=== PATIENT | female | born 1985 | race Caucasian/White ===

== ENCOUNTER 2016-12-10 10:06 | Inpatient (IN) ==
[2016-12-10 10:28] LABS: URINE MICRO REVIEW NEEDED? NO; URINE SOURCE CLEAN CATCH
[2016-12-10 10:35] LABS: BILIRUBIN URINE NEGATIVE (NEGATIVE); BLOOD URINE TRACE (NEGATIVE); COLOR YELLOW; GLUCOSE URINE NEGATIVE (NEGATIVE); LEUKOCYTES URINE LARGE (NEGATIVE); NITRITE URINE NEGATIVE (NEGATIVE); PROTEIN URINE 30 mg/dL (NEGATIVE); SP GRAVITY URINE 1.019; TURBIDITY URINE HAZY (CLEAR); UR EPITHELIAL CELLS >10 /HPF (<10); URINE BACTERIA 4+ /HPF; URINE CULTURE NEEDED? YES; URINE WBC TNTC /HPF (<10); UROBILINOGEN URINE 2 mg/dL (NORMAL)
[2016-12-10 10:53] LABS: MANUAL DIFF NEEDED? NO
[2016-12-10] MEDS ORDERED: NS 1,000 ML IV ONE (10:55)
[2016-12-10] MEDS ORDERED: ZOFRAN IV ONE (10:55)
[2016-12-10] MEDS ORDERED: ROCEPHIN 2 GM/NS 2 GM/50 ML IVPB IV ONE (10:55)
[2016-12-10] MEDS ORDERED: MORPHINE IV ONE ×2 (10:55→13:43)
[2016-12-10 11:01] LABS: BASO% 0.1 % (0.0-0.8); HEMATOCRIT 39.5 % (37.0-47.0); IMM GRAN# 0.03 X1000 (0.0-0.04); IMM GRAN% 0.2 % (0.0-0.5); LYMPH# 1.25 X1000 (1.2-3.4); LYMPH% 8.3 % (20.5-51.1); MCH 27.7 PG (27-31); MCHC 32.9 g/dL (33-37); MCV 84.2 FL (81-99); MONO# 1.56 X1000 (0.11-0.59); MONO% 10.3 % (1.7-9.3); MPV 9.5 FL (7.4-10.4); NEUT% 81.1 % (42.2-75.2); PLT 252 X1000 (130-400); RBC 4.69 XMIL (4.2-5.4)
[2016-12-10 11:11] LABS: INR 1.16; PROTIME 12.3 Seconds (9.2-11.7); PTT 33.3 Seconds (22.0-36.0)
[2016-12-10 11:30] LABS: AGAP 19; ALBUMIN 4.3 g/dL (3.5-5.0); ALKALINE PHOSPHATASE 170 U/L (32-104); BUN 9 mg/dL (8-22); CHLORIDE 98 mmol/L (98-107); CK PROFILE 47 U/L (24-173); COSMO 275; GOT 17 U/L (10-30); GPT 27 U/L (10-36); POTASSIUM 3.9 mmol/L (3.5-5.1); SODIUM 138 mmol/L (136-145); TCO2 21 mmol/L (25-35); TOTAL BILIRUBIN 1.44 mg/dL (0.20-1.00); TOTAL PROTEIN 7.6 g/dL (6.3-8.3)
[2016-12-10] MEDS ORDERED: TYLENOL PO ONE (13:30)
--- NOTE | 2016-12-10 13:34 | PROVIDER DOCUMENTATION ---
This chart was entered by Lay Deal Scribe, acting as scribe for Luis Angel Mendoza MD. HPI-Female /OB/Breast - General Chief Complaint: Back Pain Stated Complaint: UTI SX Time Seen by Provider: 12/10/16 10:31 Source: reports: patient Allergies/Adverse Reactions: Patient Allergies Allergy/AdvReac Type Severity Reaction Status Date / Time metoclopramide HCl * Allergy Severe SHORTNESS Verified 09/14/16 14:40 [From Reglan] OF BREATH Home Medications: Home Medication List Medication Instructions Recorded Confirmed Last Taken Type Vit #108/Iron/FA 1 tab PO DAILY 09/08/16 12/10/16 12/10/16 07:00 History [ One Tablet] 1 TAB - History of Present Illness-Female /OB Nature of Presenting Problem: Pt is 31 y/o F presents to the ED with R flank pain and dysuria. Pt states symptoms present for 2 days. Pt states going to Urgent Care yesterday and was diagnosed with UTI. Pt states on oral antibiotics. Pt states F of 103. Pt states N and denies V. Does patient report she is ?: No Location of complaint: reports: urethral Radiation: reports: none Quality of Pain: reports: burning Severity in ED: reports: mild Onset/Duration: reports: 2 days ago Timing: reports: still present, intermittent Context/Activities at Onset: reports: light activity Vaginal Symptoms: reports: no symptoms Vaginal Bleeding Amount: None Urinary Symptoms: reports: dysuria, low back pain. denies: hematuria Related Symptoms: reports: no symptoms Leakage of Fluid: none Modifying Factors: improves with: nothing Associated Symptoms: reports: back/neck pain (R lower back), fever/chills (F), nausea. denies: anxiety, chest pain, constipation, cough, diaphoresis, diarrhea , dizziness, fatigue, joint pain, loss of appetite, malaise, muscle aches, rash , seizure, sensory/motor loss, swelling/mass in abdomen, syncope, vomiting, weakness, trouble walking Similar Symptoms Previously?: Yes Recently seen or treated by another doctor?: Yes Review of Systems - Adult - REVIEW OF SYSTEMS - ADULT Constitutional: reports: fever. denies: chills Eyes: reports: no symptoms reported Ears, Nose, Mouth & Throat: reports: no symptoms reported Cardiovascular: reports: irregular heart rate (tachy). denies: chest pain, heart murmur Respiratory: reports: no symptoms reported Gastrointestinal: reports: nausea. denies: abdominal pain, diarrhea, vomiting Genitourinary: reports: dysuria, flank pain (R). denies: hematuria Musculoskeletal: reports: back pain (R lower). denies: bone pain, joint pain, neck pain Integumentary: reports: no symptoms reported Neurological: reports: no symptoms reported Psychiatric: reports: no symptoms reported Endocrine: reports: no symptoms reported Hematologic/Lymphatic: reports: no symptoms reported Allergic/Immunologic: reports: no symptoms reported All Other Systems: Reviewed and Negative Past History - Adult - PAST MEDICAL HISTORY-ADULT Review of Records: reports: Nursing Assessment Review, Medications Reviewed, Social history reviewed & non-contributory. Major Childhood Illnesses: reports: denies history Cardiovascular: reports: denies history Respiratory: reports: denies history Gastrointestinal: reports: denies history Obstetrical/Gynecological: reports: denies history Genitourinary: reports: denies history Musculoskeletal: reports: denies history Neurological: reports: denies history Endocrine/Immune: reports: denies history Other Conditions: reports: denies history - PRIOR SURGERIES/PROCEDURES Surgical/Procedure History: reports: none - IMMUNIZATION STATUS Childhood Immunizations: See Nurse Assessment Flu Vaccine: See Nurse Assessment - FAMILY HISTORY Family History: reviewed, not pertinent - SOCIAL HISTORY Smoking: cigarettes, less than 1 pack/day Provider spent 3-5 mins advising pt. on dangers of tobacco.: Discussed manners to quit use, and f/u contacts for add'l counseling. Substance Use: denies Living Situation: family Physical Exam-General - PHYSICAL EXAM-ADULT Initial Vital Signs Reviewed: Yes - CONSTITUTIONAL General Appearance: appears well, alert, no apparent distress, obese - EYES Eyes: PERRL/EOMI, pink conjunctivae - HEAD, EARS, NOSE, MOUTH & THROAT HENMT: normocephalic/atraumatic, moist mucous membranes, normal ENT inspection, TMs normal, pharynx normal - NECK Neck: non-tender, full range of motion, supple, normal inspection - RESPIRATORY Respiratory: chest non-tender, lungs clear, normal breath sounds, no pleuratic chest pain, no respiratory distress, no accessory muscle use - CARDIOVASCULAR Cardiovascular: normal peripheral pulses, no edema, no gallop, no JVD, no murmur , tachycardia - GASTROINTESTINAL (ABDOMEN) Abdominal Exam: normal bowel sounds, soft, no organomegaly, no pulsatile mass, tenderness (R flank) - LYMPHATIC Lymphatic: no adenopathy - MUSCULOSKELETAL Back Exam: no vertebral tenderness, CVA tenderness (R) Extremity: normal range of motion, non-tender, normal gait, normal inspection, no pedal edema, no calf tenderness, normal capillary refill, pelvis stable - SKIN Integumentary: normal color, normal turgor, warm/dry - NEUROLOGIC Neurologic: grossly normal - PSYCHIATRIC Psych/Mental Status: normal mood/affect, oriented x 3 Progress - PLAN OF CARE/RESULTS Progress/Plan/Lab Results: Vital Signs - 8 hr 12/10/16 10:11 12/10/16 13:12 Temperature 98.5 F 103.1 F H Pulse Rate 155 H 120 H Respiratory Rate 24 18 Blood Pressure 129/86 128/79 O2 Sat by Pulse Oximetry 100 99 Laboratory Results - last 24 hr 12/10/16 12/10/16 12/10/16 10:17 10:40 10:40 WBC 15.11 H RBC 4.69 Hgb 13.0 Hct 39.5 MCV 84.2 MCH 27.7 MCHC 32.9 L RDW Std Deviation 13.3 Plt Count 252 MPV 9.5 Immature Gran % (Auto) 0.2 Neut % (Auto) 81.1 H Lymph % (Auto) 8.3 L [place] % (Auto) 10.3 H Eos % (Auto) 0.0 Baso % (Auto) 0.1 Immature Gran # (Auto) 0.03 Neut # (Auto) 12.26 H Lymph # (Auto) 1.25 [place] # (Auto) 1.56 H Eos # (Auto) 0.00 Baso # (Auto) 0.01 PT INR PTT (Actin FS) Sodium 138 Potassium 3.9 Chloride 98 Carbon Dioxide 21 L Anion Gap 19 BUN 9 Creatinine 0.7 Estimated GFR/1.73 m2 > 60 BUN/Creatinine Ratio 13 Glucose 116 H Calculated Osmolality 275 Calcium 9.0 Total Bilirubin 1.44 H AST 17 ALT 27 Alkaline Phosphatase 170 H Creatine Kinase 47 Troponin T Total Protein 7.6 Albumin 4.3 Globulin 3.3 Albumin/Globulin Ratio 1.3 Plasma Lactate Urine Source CLEAN CATCH Urine Color YELLOW Urine Turbidity HAZY Urine pH 6.0 Ur Specific [place] 1.019 Urine Protein 30 A Ur Glucose (Stick) NEGATIVE Ur Ketones (Stick) NEGATIVE Urine Blood TRACE A Urine Nitrite NEGATIVE Urine Bilirubin NEGATIVE Urobilinogen Dipstick 2 A Urine Leukocytes LARGE A Urine WBC (Auto) TNTC A Urine RBC (Auto) 10-20 A U Epithel Cells (Auto) >10 A Urine Bacteria (Auto) 4+ 12/10/16 12/10/16 12/10/16 10:40 10:40 10:40 WBC RBC Hgb Hct MCV MCH MCHC RDW Std Deviation Plt Count MPV Immature Gran % (Auto) Neut % (Auto) Lymph % (Auto) [place] % (Auto) Eos % (Auto) Baso % (Auto) Immature Gran # (Auto) Neut # (Auto) Lymph # (Auto) [place] # (Auto) Eos # (Auto) Baso # (Auto) PT 12.3 H INR 1.16 PTT (Actin FS) 33.3 Sodium Potassium Chloride Carbon Dioxide Anion Gap BUN Creatinine Estimated GFR/1.73 m2 BUN/Creatinine Ratio Glucose Calculated Osmolality Calcium Total Bilirubin AST ALT Alkaline Phosphatase Creatine Kinase Troponin T 0.010 Total Protein Albumin Globulin Albumin/Globulin Ratio Plasma Lactate 1.9 Urine Source Urine Color Urine Turbidity Urine pH Ur Specific [place] Urine Protein Ur Glucose (Stick) Ur Ketones (Stick) Urine Blood Urine Nitrite Urine Bilirubin Urobilinogen Dipstick Urine Leukocytes Urine WBC (Auto) Urine RBC (Auto) U Epithel Cells (Auto) Urine Bacteria (Auto) Orders Category Date Time Status Cardiac Monitoring DIRECTED Care 12/10/16 10:13 Active IV Insertion ORDERED Care 12/10/16 10:13 Completed Notify of + Sepsis Screen NOW Care 12/10/16 10:13 Active US RENAL 1 (LIMITED)-RIGHT [US] Stat Exams 12/10/16 13:03 Ordered BLOOD CULTURE [BLDCUL] Stat Lab 12/10/16 10:40 Received CBC WITH DIFF [HEME] Stat Lab 12/10/16 10:40 Completed CK PROFILE [SP CHEM] Stat Lab 12/10/16 10:40 Completed COMPREHENSIVE METABOLIC PANEL [CHEM] Stat Lab 12/10/16 10:40 Completed LACTATE, PLASMA [CHEM] Stat Lab 12/10/16 10:40 Completed LACTATE, PLASMA [CHEM] Stat Lab 12/10/16 13:24 Ordered TEST-URINE [PREG] Stat Lab 12/10/16 13:12 Ordered PROTIME WITH INR [COAG] Stat Lab 12/10/16 10:40 Completed PTT [COAG] Stat Lab 12/10/16 10:40 Completed TROPONIN T Stat Lab 12/10/16 10:40 Completed URINALYSIS W/POSS RFLX CULT [URINALYSIS] Stat Lab 12/10/16 10:17 Completed URINE CULTURE [RM] Routine Lab 12/10/16 10:37 Received 0.9% Sodium Chloride Inj [Ns] 1,000 ml Med 12/10/16 10:55 Discontinued IV 999 mls/hr Acetaminophen [Tylenol] Med 12/10/16 13:30 Once 1,000 mg PO NOW ONE Acetaminophen [Tylenol] Med 12/10/16 13:30 Ordered 650 mg PO Q6H PRN PRN CefTRIAXONE 2 GM/NS [Rocephin 2 gm/Ns] Med 12/10/16 10:55 Discontinued 2 gm in 50 ml IV NOW Morphine Med 12/10/16 10:55 Discontinued 4 mg IV NOW ONE Ondansetron [Zofran] Med 12/10/16 10:55 Discontinued 4 mg IV NOW ONE Oxygen Device Stat Oth 12/10/16 10:13 Active Transfer/Admit Order [TRANSFER] Routine Transfer 12/10/16 13:13 Ordered Result Diagrams: 12/10/16 10:40 12/10/16 10:40 - REASSESSMENT Reassessment #1 Time Reassessed: 11:50 (Dr. Mendoza at bedside. ) Status: improving Reassessment Comment: Pt states she is feeling better Reassessment #2 Time Reassessed: 01:00 (Says htta she is srating to feel uncomfortable again,) Reassessment Comment: Made aware of plan for admission and current treatment plan. - CONSULTS/PCP/HOSPITALIST Notification #1 *Consult/PCP/Hospitalist*: Dr. Ivory Time Discussed: 13:12 (Dr. Ivory accepted admit ) Reason/Comments: Dr. Mendoza consulted with Dr. Ivory about admit of Pt Consult Disposition: Admit Departure - Departure Time of Disposition Decision: 13:13 DIAGNOSIS: Acute pyelonephritis, Leukocytosis Disposition: ADMITTED INPATIENT 09 Certified Medical Emergency: Emergent Condition: Stable Referrals and Follow-Ups: None,PCP [Primary Care Provider] - This chart was documented by the indicated scribe, (Lay Deal Scribe) and accurately reflects the services I performed and decisions made by me, Luis Angel Mendoza MD, as attested by the provider's signature.
[2016-12-10] MEDS ORDERED: ZOFRAN IV PRN (14:08)
[2016-12-10] MEDS: NS 1,000 ML IV SCH ×2 (14:38→22:50)
--- NOTE | 2016-12-10 15:20 | Diag Imaging Result Document ---
PROCEDURE NAME: US RENAL 2 (RETROPER) COMPLETE - 12/10/2016 RENAL ULTRASOUND: COMPARISON: None. FINDINGS: There is probably a nonobstructing stone superiorly in the right kidney. This measures about 1 cm maximally. The left kidney is normal in echotexture. There is no hydronephrosis. Renal sizes are normal. The right kidney measures 12.7 x 6 x 5.8 cm. Cortex measures 1.1 cm. The left kidney measures 11.9 x 5.7 x 5.1 cm. Cortex measures 1.2 cm. The urinary bladder is normal. IMPRESSION: Right nephrolithiasis. Otherwise normal.
--- NOTE | 2016-12-10 17:58 | HISTORY AND PHYSICAL ---
CHIEF COMPLAINT: Fever and flank pain. HISTORY OF PRESENT ILLNESS: Ms. Flood is a 31-year-old, female, with no medical problems who presents with 3 days of dysuria, fever and right flank pain. She reports fairly intense dysuria with progression to right flank pain, getting worse on a daily basis. She went to urgent care yesterday and was started on amoxicillin and was told that if she did not improve, that she would need to come to the ER here. She had a fever again this morning with continued flank pain and she decided to come to the ER for evaluation. She has no other real symptoms. Temperature maximum this afternoon is 103.1, her white count is 15 and she shows a significant urinary tract infection. Overall, her symptoms and diagnostics are consistent with sepsis and pyelonephritis. She is now going to be admitted for further treatment and evaluation. PAST MEDICAL HISTORY: None. SURGICAL HISTORY: Recent in September. SOCIAL HISTORY: Patient denies tobacco, alcohol or drug use. 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 Her is at the bedside. She recently had a child by in September. She is still breast feeding. FAMILY HISTORY: Significant for coronary artery disease. REVIEW OF SYSTEMS: Fourteen-point review of systems obtained and found to be negative with the exception of the history of present illness. ALLERGIES: Reglan. HOME MEDICATIONS: multivitamin. PHYSICAL EXAMINATION: VITAL SIGNS: Blood pressure is 128/79, heart rate 120, respiratory rate 18, O2 saturation 99% on room air. Temperature is 103.1 degrees. GENERAL: This is a morbidly obese, female, lying in hospital bed. No acute distress. NEUROLOGIC: The patient is awake, alert, and oriented, follows commands without focal deficits. HEENT: Head is atraumatic and normocephalic. Pupils equal, round, reactive to light. Oral mucosa is moist. Trachea is midline. No JVD or carotid bruits. CHEST: Clear to auscultation bilaterally. CARDIOVASCULAR: Regular rate and rhythm. S1-S2 is noted. No murmurs, gallops, clicks, or rubs. GI: Soft, nondistended, nontender. Bowel sounds are positive. Right CVA tenderness is noted. No CVA tenderness on the left. EXTREMITIES: Without edema, clubbing or cyanosis. Pulses are palpable bilaterally. DIAGNOSTIC DATA: WBC 15.1, hemoglobin 13, hematocrit 39.5, platelet count 252,000. INR 1.16, sodium 138, potassium 3.9, chloride 98, CO2 21, anion gap 19, BUN 9, creatinine 0.7, glucose 116, total bilirubin 1.44. AST 17, ALT 27, alkaline phosphatase 170, troponin negative. Albumin is 4.3, lactate 0.9. UA is positive for urinary tract infection negative for . ASSESSMENT AND PLAN: 1. Sepsis: Patient meets criteria for sepsis with white count, fever and source of urinary tract infection and pyelonephritis. She is not hypotensive and her lactate is not elevated. So she does not meet criteria for severe sepsis or septic shock. We will continue with Rocephin targeted at gram negative bacteria, mainly Escherichia coli. Cultures of the blood and urine have been obtained and fluid has been started. Again, she is not hypotensive. We will follow her cultures and change antibiotics if needed. 2. Pyelonephritis: Emergency room has ordered an ultrasound of the kidney on the right. We will continue to follow this once it has been done. Continue antibiotics and cultures are pending. 3. Deep venous thrombosis prophylaxis with Lovenox. Further recommendations to follow. Dictated by SHALONDA Khoury for Micheal Ivory MD cc: SHALONDA Khoury MD
[2016-12-10] MEDS: TYLENOL PO PRN (18:43)
[2016-12-10] MEDS: MORPHINE IV PRN (20:09)
[2016-12-11] MEDS: NS 1,000 ML IV SCH ×6 (00:25→23:39)
[2016-12-11] MEDS: TYLENOL PO PRN ×4 (00:42→21:14)
[2016-12-11] MEDS: MORPHINE IV PRN ×4 (01:52→23:32)
[2016-12-11] MEDS: LOVENOX SUBQ SCH (10:35)
[2016-12-11] MEDS: PRECARE PO SCH (10:35)
--- NOTE | 2016-12-11 10:43 | Diag Imaging Result Document ---
PROCEDURE NAME: CT ABD/PELVIS W/ IV CONT ONLY - 12/11/2016 CT ABDOMEN AND PELVIS WITH INTRAVENOUS CONTRAST: FINDINGS: The spleen is enlarged measuring 14.8 cm in length. There is fatty infiltration of the liver. Normal pancreas, gallbladder, and adrenal glands. Normal enhancement of the left kidney. There are areas of decreased enhancement within the right kidney with mild perinephric inflammation. Slightly distended ureters. No ureteral stones. Normal aorta. There are small periaortic lymph nodes. No bowel obstruction. Normal appendix. No abscess. There is stool scattered throughout the colon. The urinary bladder is distended and appears normal. Normal uterus and ovaries. IMPRESSION: 1. Right-sided pyelonephritis. 2. Splenomegaly. 3. Fatty infiltration of the liver. 4. Constipation.
[2016-12-11] MEDS: ROCEPHIN 2 GM/NS 2 GM/50 ML IVPB IV SCH (10:46)
[2016-12-11] MEDS ORDERED: ROCEPHIN 1 GM/NS 1 GM/50 ML IVPB IV SCH (11:00)
[2016-12-11] MEDS: BENTYL PO SCH ×2 (14:59→21:14)
--- NOTE | 2016-12-11 16:18 | PROGRESS NOTE ---
DATE: 12/11/2016 SUBJECTIVE: Today Ms. Flood referred to be doing fine. Continues to have low- grade fever and chills and also right-sided abdominal discomfort. OBJECTIVE: Vital signs: Blood pressure is 119/80, pulse is 99, respirations 18 , temperature 97.9 degrees. Of note, patient had a temperature of 101.5 degrees early this morning. General: Ms. Flood is a 31-year-old female. She was in bed. She did not seem to be in any distress. HEENT: Mucosa is pink and moist. Anicteric and acyanotic. Neck: Supple. Chest: Good air entry bilaterally. No crepitations. No rhonchi. Cardiovascular: Regular rate and rhythm. There are no murmurs, no rubs, no gallops. Abdomen: Soft, mildly tender on the right side. There is a slight right CVA tenderness. Extremities: No pedal edema. 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 LABORATORY DATA: No lab works for this morning. DIAGNOSTIC STUDIES: A CT scan of the abdomen and pelvis which was done because of the persistent fever showed a right-sided pyelonephritis, splenomegaly, fatty infiltration of the liver and constipation. ASSESSMENT: 1. Sepsis. 2. Right pyelonephritis with urine culture negative. Of course the patient was on oral antibiotics for a few days before coming to the hospital, so this could pretty much explain why her cultures have been negative. 3. Fatty liver disease. 4. Constipation. We will treat this more symptomatically. PLAN: 1. So in general Ms. Flood is a 31-year-old who was admitted to the hospital yesterday because of fever, chills and failed outpatient treatment for urinary tract infection. A computed tomography scan this morning did confirm a right side pyelonephritis, but with no complication. We increased her ceftriaxone to 2 g q.24 hourly and will add Bentyl and [place] for better pain control. 2. I anticipate the patient being here for about a day or 2 and transitioned to p.o. antibiotics once she becomes afebrile. cc: Micheal Ivory MD MTDD
[2016-12-11] MEDS: MILK OF MAGNESIA PO PRN (17:48)
[2016-12-11] MEDS: NORCO-7.5 PO PRN (17:48)
[2016-12-12] MEDS: NORCO-7.5 PO PRN ×2 (04:29→18:11)
[2016-12-12] MEDS: NS 1,000 ML IV SCH ×5 (06:29→23:45)
[2016-12-12 07:13] LABS: MANUAL DIFF NEEDED? NO
[2016-12-12 07:43] LABS: AGAP 14; BUN 7 mg/dL (8-22); CALCIUM 8.5 mg/dL (8.8-10.2); CHLORIDE 106 mmol/L (98-107); COSMO 278; POTASSIUM 3.6 mmol/L (3.5-5.1); SODIUM 140 mmol/L (136-145); TCO2 20 mmol/L (25-35)
[2016-12-12 08:01] LABS: BASO% 0.3 % (0.0-0.8); EOS# 0.03 X1000 (0.0-0.7); EOS% 0.5 % (0.0-10.0); HEMATOCRIT 30.1 % (37.0-47.0); HEMOGLOBIN 9.9 g/dL (12.0-16.0); IMM GRAN# 0.03 X1000 (0.0-0.04); IMM GRAN% 0.5 % (0.0-0.5); LYMPH% 19.2 % (20.5-51.1); MCHC 32.9 g/dL (33-37); MCV 85.3 FL (81-99); MONO# 0.68 X1000 (0.11-0.59); MONO% 11.9 % (1.7-9.3); MPV 9.9 FL (7.4-10.4); NEUT% 67.6 % (42.2-75.2); PLT 170 X1000 (130-400); RBC 3.53 XMIL (4.2-5.4)
[2016-12-12] MEDS: BENTYL PO SCH ×2 (08:38→21:23)
[2016-12-12] MEDS: PRECARE PO SCH (08:38)
[2016-12-12] MEDS: LOVENOX SUBQ SCH (08:38)
[2016-12-12] MEDS: ROCEPHIN 2 GM/NS 2 GM/50 ML IVPB IV SCH (10:42)
[2016-12-12] MEDS: MORPHINE IV PRN (10:42)
[2016-12-12] MEDS: TYLENOL PO PRN ×2 (13:58→21:24)
[2016-12-12] MEDS ORDERED: SODIUM CHLORIDE 0.9% INJ SCH (15:15)
--- NOTE | 2016-12-12 15:22 | PROGRESS NOTE ---
DATE: 12/12/2016 SUBJECTIVE: Patient reports having had fever this morning and not a good appetite. She did not vomit. OBJECTIVE: Vital Signs: Temperature 103.2 degrees, heart rate 90, respiratory rate 21, blood pressure 134/79, O2 saturation 99% on room air. General Examination: This is a 31-year-old female lying in bed, in no acute distress. HEENT: Head is normocephalic, atraumatic. Anicteric sclerae and pale conjunctivae. Mucous membranes moist. Neck: Supple. No JVD noted. No carotid bruits. No lymphadenopathy. No thyromegaly. Cardiovascular: S1, S2 heard. No murmurs, gallops, or rubs. Regular rate and rhythm. Respiratory: Clear bilaterally to auscultation. No work of breathing or using accessory muscles. Abdomen: Soft, nontender to palpation. Bowel sounds present. No organomegaly. Extremities: No clubbing, cyanosis, or edema. Peripheral pulses present in both legs. Neurological: Patient alert and oriented x3. Able to move 4 extremities. Cranial nerves 2-12 grossly normal. LABORATORY DATA: White cell count 5.72, hemoglobin 9.9, hematocrit 30.1, platelets 170,000. BMP is unremarkable. ASSESSMENT AND PLAN: 1. Right pyelonephritis although the urine culture is negative. Patient is still spiking fever. From today it has been 24 hours since 1st dose of antibiotics has been given. We will wait until tomorrow to see if this patient responds to the medication. For suspicion for extended- spectrum beta-lactamase E. Coli infection, we have order another urine culture. 2. Fatty liver disease. Aware. 3. Constipation. Aware. cc: Fabrice Joya MD
[2016-12-12] MEDS: PROTONIX IV SCH (16:55)
[2016-12-12] MEDS: TORADOL IV SCH ×2 (16:55→21:24)
[2016-12-13] MEDS: TYLENOL PO PRN ×3 (03:26→22:56)
[2016-12-13] MEDS: NS 1,000 ML IV SCH ×4 (03:34→22:16)
[2016-12-13] MEDS: TORADOL IV SCH ×5 (04:39→22:16)
[2016-12-13] MEDS: NORCO-7.5 PO PRN (04:42)
[2016-12-13] MEDS: BENTYL PO SCH ×2 (08:29→23:10)
[2016-12-13] MEDS: PRECARE PO SCH (08:30)
[2016-12-13] MEDS: LOVENOX SUBQ SCH (08:30)
[2016-12-13] MEDS: MILK OF MAGNESIA PO PRN (08:45)
[2016-12-13] MEDS: MORPHINE IV PRN (10:56)
[2016-12-13] MEDS: ROCEPHIN 2 GM/NS 2 GM/50 ML IVPB IV SCH (11:17)
[2016-12-13 12:27] LABS: MANUAL DIFF NEEDED? NO
[2016-12-13 12:30] LABS: BASO% 0.2 % (0.0-0.8); EOS# 0.06 X1000 (0.0-0.7); EOS% 0.9 % (0.0-10.0); HEMATOCRIT 29.3 % (37.0-47.0); HEMOGLOBIN 9.7 g/dL (12.0-16.0); IMM GRAN# 0.02 X1000 (0.0-0.04); IMM GRAN% 0.3 % (0.0-0.5); LYMPH# 1.63 X1000 (1.2-3.4); LYMPH% 24.9 % (20.5-51.1); MCHC 33.1 g/dL (33-37); MCV 84.4 FL (81-99); MONO# 0.82 X1000 (0.11-0.59); MONO% 12.5 % (1.7-9.3); MPV 9.3 FL (7.4-10.4); NEUT% 61.2 % (42.2-75.2); PLT 186 X1000 (130-400); RBC 3.47 XMIL (4.2-5.4)
[2016-12-13] MEDS: INVANZ 1 GM/NS 1 GM/50 ML IVPB IV SCH (13:37)
--- NOTE | 2016-12-13 16:04 | PROGRESS NOTE ---
DATE: 12/13/2016 SUBJECTIVE: Patient reports she is still having fever this morning although it was not documented. OBJECTIVE: Vital Signs: Temperature 97.9 degrees, heart rate 80, respiratory rate 20, blood pressure 116/64, O2 saturations 98% on room air. General Examination: This a 31-year-old female lying in bed, in no acute distress. HEENT: Head is normocephalic and atraumatic. Anicteric sclerae and pale conjunctivae. Mucous membranes moist. Neck: Supple. No JVD noted. No carotid bruits. No lymphadenopathy. No thyromegaly. Cardiovascular: S1, S2 heard. No murmurs, gallops, or rubs. Regular rate and rhythm. Respiratory: Clear bilaterally to auscultation. No work of breathing or using accessory muscles. Abdomen: Soft, nontender to palpation. Bowel sounds present. No organomegaly. Extremities: No clubbing, cyanosis, or edema. Peripheral pulses present in both legs. Right CVA tenderness present. Neurological: Patient alert oriented x3. Able to move 4 extremities. Cranial nerves 2-12 grossly normal. LABORATORY DATA: White cell count 6.54, hemoglobin 9.7, hematocrit 29.3, platelets 186,000. BMP unremarkable. ASSESSMENT AND PLAN: 1. Right pyelonephritis. Although the urine culture is negative, the patient was spiking fever until yesterday night. We have repeated another urine culture and it is negative so far. In any case, we will plan to keep her 1 more day over here in the hospital, and I decided to change the antibiotic to ertapenem IV. We will consult Dr. Churchill from Infectious Disease to see what else we can do for this patient 2. Fatty liver disease. Aware. 3. Constipation. Aware. cc: Fabrice Joya MD
[2016-12-13] MEDS: PROTONIX IV SCH (17:06)
[2016-12-13 18:27] LABS: INR 1.1; PROTIME 11.6 Seconds (9.2-11.7)
--- NOTE | 2016-12-13 18:30 | CONSULTATION ---
DATE OF CONSULTATION: 12/13/2016 CONCLUSION: This 31-year-old female is admitted to the hospital for a right-sided pyelonephritis. There is no question that she had a pyelonephritis. It showed up on CT scan and the patient's urinalysis showed white cells and bacteria but for some reason, the urine cultures have not grown and the blood cultures have not grown either. RECOMMENDATIONS: The patient has been having fever. It has gradually come down. She was started on Invanz today and she said she feels much better and she has remained afebrile. I think would be best to go with Invanz especially since we have not isolated an organism from her urine or blood. I plan to order a PICC and then put in a consult to arrange for home IV antibiotics. I plan to treat the patient for 14 days with the IV antibiotic. DISCUSSION: The patient tells me about 3 days prior to admission she started having right CVA pain and dysuria. She also developed a fever. She was admitted to the hospital. Her laboratory studies show a CBC with a white count of 6540, hemoglobin 9.7, and platelet count 186,000. Creatinine is 0.6. Liver function studies were normal except for an alkaline phosphatase of 177. Urinalysis showed many white cells and bacteria. Urine test was negative. CT scan of the abdomen and pelvis showed a right-sided pyelonephritis. Blood and urine cultures are negative. PAST MEDICAL HISTORY/REVIEW OF SYSTEMS: Eyes and ears: She denies difficulty hearing or seeing. Neck: No stiffness. Respiratory: No cough or shortness of breath. Cardiac: No chest pain or palpitations. GI: No nausea, vomiting, or diarrhea. : See present illness. Bones, joints, muscles: She is not complaining of any joint pains or myalgias. Neurologic: No motor or sensory loss. No seizures. Integument: No rash. The remainder of the patient's review of systems was completed and it was negative. OUTPATIENT SCHEDULER HISTORY: She is a 2, para 2, AB 0. She delivered her last baby by , the 1st 1 was a vaginal delivery. PREVIOUS HOSPITALIZATIONS AND OPERATIONS: She has had a labor and delivery and . MEDICAL DISEASES: Positive for gestational diabetes. INFECTIOUS DISEASE HISTORY: The patient as a child had bladder infections but never anything that sounded like she had a kidney infection. FAMILY HISTORY: Positive for diabetes mellitus, hypertension, myocardial infarction, and stroke. SOCIAL HISTORY: [place] She is . She does not drink alcoholic beverages or smoke cigarettes or abuse drugs. ALLERGIES: She has an allergy to Reglan. HOME MEDICATIONS: Include the following: Just vitamins. She is a [id number] mother. PHYSICAL EXAMINATION: Vital Signs: Temperature is 97.9 degrees, pulse 80, respirations 20, blood pressure 116/64. The patient weighs 237 pounds. General: This is an obese, young female. She is in no acute distress. Head, eyes, ears, nose, and throat: She can hear my spoken words and see near objects. There were no white patches in her mouth. Neck: No meningismus. Lungs: Clear to auscultation. Cardiovascular: Heart rate is regular. Abdomen: Soft and nontender. There is no CVA tenderness. Neurologic: Patient is alert. She can move her extremities. There is no tremor. Her sensation is intact to touch. Her memory, as regarding her medical history is intact also. Integument: No rash is noted. Thank you for the consult. cc: Jimmy Churchill MD
[2016-12-14 00:23] LABS: URINE MICRO REVIEW NEEDED? NO; URINE SOURCE CLEAN CATCH
[2016-12-14 00:26] LABS: BILIRUBIN URINE NEGATIVE (NEGATIVE); BLOOD URINE NEGATIVE (NEGATIVE); COLOR YELLOW; GLUCOSE URINE NEGATIVE (NEGATIVE); LEUKOCYTES URINE NEGATIVE (NEGATIVE); NITRITE URINE NEGATIVE (NEGATIVE); PROTEIN URINE NEGATIVE (NEGATIVE); SP GRAVITY URINE 1.009; TURBIDITY URINE CLEAR (CLEAR); UROBILINOGEN URINE NORMAL (NORMAL)
[2016-12-14 00:27] LABS: UR EPITHELIAL CELLS <10 /HPF (<10); URINE BACTERIA NEGATIVE /HPF; URINE RBC <10 /HPF (<10); URINE WBC <10 /HPF (<10)
[2016-12-14] MEDS: NORCO-7.5 PO PRN ×2 (01:41→08:04)
[2016-12-14 07:08] LABS: MANUAL DIFF NEEDED? NO
[2016-12-14 07:29] LABS: BASO% 0.7 % (0.0-0.8); EOS# 0.06 X1000 (0.0-0.7); HEMATOCRIT 31.2 % (37.0-47.0); HEMOGLOBIN 10.3 g/dL (12.0-16.0); IMM GRAN# 0.04 X1000 (0.0-0.04); IMM GRAN% 0.7 % (0.0-0.5); LYMPH# 1.93 X1000 (1.2-3.4); LYMPH% 31.6 % (20.5-51.1); MCH 27.7 PG (27-31); MCV 83.9 FL (81-99); MONO# 0.76 X1000 (0.11-0.59); MONO% 12.5 % (1.7-9.3); MPV 9.3 FL (7.4-10.4); NEUT% 53.5 % (42.2-75.2); PLT 245 X1000 (130-400); RBC 3.72 XMIL (4.2-5.4)
[2016-12-14] MEDS: PRECARE PO SCH (08:06)
[2016-12-14] MEDS: BENTYL PO SCH (08:06)
[2016-12-14] MEDS: TORADOL IV SCH ×2 (08:07→12:59)
[2016-12-14] MEDS: LOVENOX SUBQ SCH (08:08)
[2016-12-14 08:26] VITALS: BP 144/91
[2016-12-14] MEDS ORDERED: NS 250 ML ONE (09:04)
[2016-12-14] MEDS: INVANZ 1 GM/NS 1 GM/50 ML IVPB IV SCH (13:55)
[2016-12-14] MEDS: NS 1,000 ML IV SCH (14:02)
--- NOTE | 2016-12-14 15:52 | DISCHARGE SUMMARY ---
ADMISSION DATE: 12/10/2016 DISCHARGE DATE: 12/14/2016 CONSULTATIONS: Jimmy Churchill MD with Infectious Disease. PERTINENT PROCEDURES: 1. Abdominopelvic CT showed right-sided pyelonephritis, splenomegaly, fatty infiltration of the liver, constipation. 2. Renal ultrasound showed right nephrolithiasis otherwise normal. DISCHARGE DIAGNOSES: 1. Right pyelonephritis. Urine cultures are negative so far with the patient repeatedly spiking fevers. Repeat urine culture was also negative as well as negative blood cultures. Dr. Jimmy Churchill with Infectious Disease was consulted. Patient was switched to IV Invanz and has remained afebrile so she will get a PICC line today and go home on Invanz for 14 days. 2. Fatty liver disease. Aware. 3. Constipation. Aware. HOSPITAL COURSE: Briefly, Ms. Flood is a 31-year-old, female with no medical problems, with 3 days of dysuria, fever, right flank pain. She reports fairly intense dysuria with progression of the flank pain getting worse on a daily basis. She went to urgent care and was started on amoxicillin she did not improve so she to came to the ED for evaluation. She was having fever again on the morning of her admission with continued flank pain. Temperature was 103.1 degrees, white count was 15. She did show a significant urinary tract infection. The patient was admitted with sepsis and pyelonephritis. Confirmed with abdominopelvic CT. Patient was started on aggressive fluid hydration as well as IV antibiotics. Patient continued to spike fevers. Her antibiotic was changed to Invanz. Dr. Jimmy Churchill was consulted. Patient had 2 days of no fever after being transitioned to Invanz. She had 2 negative urine cultures as well as 2 negative blood cultures. The patient has been adequately hydrated. Her symptoms have improved. The patient will go undergo a PICC line today and Dr. Churchill has set her up with IV antibiotic, Invanz, for 2 weeks. Patient is being discharged home. VITAL SIGNS AT DISCHARGE: Temperature 98.3 degrees, heart rate 91, respirations 18, blood pressure 144/91, O2 is 98% on room air. DISCHARGE MEDICATIONS: 1. vitamins 1 each p.o. daily. 2. Invanz for 14 days on outpatient basis as per Dr. Churchill. DISCHARGE DIET: Regular. FOLLOWUP: The patient is being discharged home with IV antibiotics for 2 weeks. Patient will need to follow up with a primary care physician, list provided to her, in 7-10 days as well as Dr[address] Jimmy Churchill as indicated. Patient can return to the ED for any worsening of symptoms. DISCHARGE TIME: 33 minutes. Dictated by SHALONDA Fernández for Fabrice Joya MD cc: Fabrice Joya MD MTDD
== END 2016-12-14 16:45 | disposition home or self-care (01) ==
LOC: ED 10:06 → SUATTDRO 14:22 → EDIPHOLD 14:22 → 3N 14:48
PROVIDERS: ATTEND Internal Medicine